=== PATIENT | female | born 1985 | race Two or more races ===

== ENCOUNTER 2018-03-25 15:09 | Outpatient (CLI) | payer OTHER ==
[2018-03-25] MEDS ORDERED: PRENATAL 19 TA1 EACH PO (15:56)
== END 2018-03-26 13:20 | disposition home or self-care (01) ==
LOC: OBS/DEL 15:09
DX: O26.893 Other specified pregnancy related conditions, third trimester (principal); K52.89 Other specified noninfective gastroenteritis and colitis; Z34.83 Encounter for supervision of other normal pregnancy, third trimester

== ENCOUNTER 2018-04-09 08:50 | Inpatient (IN) | payer OTHER ==
[~2018-04-09] VITALS: Ht 167.6 cm; Wt 4.1 kg
[~2018-04-09 08:50] MED LIST: PRENATAL 19 TA1 EACH PO
== END 2018-04-11 11:40 | DRG 766 ==
LOC: O/R 08:50 → OB/GYN 08:50
PROVIDERS: Obstetrics & Gynecology
PROC: 0UB70ZZ Excision of Bilateral Fallopian Tubes, Open Approach (ICD-10-PCS; 2018-04-09)
PROC: 4A1HXCZ Monitoring of Products of Conception, Cardiac Rate, External Approach (ICD-10-PCS; 2018-04-09)
PROC: 10D00Z1 Extraction of Products of Conception, Low, Open Approach (ICD-10-PCS; principal; 2018-04-09 16:45)
DX: O41.03X0 Oligohydramnios, third trimester, not applicable or unspecified (principal); O34.211 Maternal care for low transverse scar from previous cesarean delivery; O75.82 Onset (spontaneous) of labor after 37 completed weeks of gestation but before 39 completed weeks gestation, with delivery by (planned) cesarean section; Z3A.38 38 weeks gestation of pregnancy; Z37.0 Single live birth; Z30.2 Encounter for sterilization